=== PATIENT | male | born 1950 | race Caucasian/White ===

== ENCOUNTER 2019-05-23 07:46 | Day surgery (SDC) | payer MEDICARE, SELFPAY ==
--- NOTE | 2019-05-22 16:58 | PM.PREOP ---
Pre-operative Note Interval Note History & Physical reviewed/Exam performed by Physician: Yes Changes to H&P: No
[2019-05-23 08:22] VITALS: PULSE 71; RESP 18; TEMP 36.4; O2SAT 100
[2019-05-23 08:24] VITALS: BMI 22.6
[2019-05-23] MEDS: PROPARACAINE 0.5% OPHTH SOL 2 DROPS EYE-OP (08:40)
[2019-05-23] MEDS: CATARACT EYE COMPOUND (10 DROPS/SYRINGE) 3 DROPS EYE-OP (08:50)
--- NOTE | 2019-05-23 10:04 | SUR.OPER ---
Supine on eye stretcher, head on extension cradle secured with tape. Arms tucked at sides with blanket. Pillow under knees.
[2019-05-23] MEDS: HYALURONATE SODIUM 10 MG/ML SYRINGE INJ (10:16)
[2019-05-23] MEDS: CHONDROIDTIN/SOD HYALURONATE 1.05 ML SYRINGE INTRAOCULA (10:16)
[2019-05-23] MEDS: TRIAMCINOLONE 50 MG/5 ML VIAL INJ (10:17)
[2019-05-23] MEDS: MOXIFLOXACIN INJ 5 MG/ML VIAL EYE-OP (10:17)
[2019-05-23] MEDS: PHENYLEPHRINE/LIDOCAINE VIAL (OR) 0.2 ML EYE-OP (10:18)
[2019-05-23] MEDS: LIDOCAINE 2% 4 ML, BUPIVACAINE 0.5% (PF) 4 ML, HYALURONIDASE 150 UNIT INJ (10:19)
[2019-05-23] MEDS: BALANCED SALT IRRIG SOLN NO.2 500 ML, EPINEPHrine 1 MG IRR (10:20)
[2019-05-23] MEDS: ERYTHROMYCIN OPHTH 1 GM OINT 1 APPLIC EYE-LEFT (10:21)
[2019-05-23] MEDS: TRYPAN BLUE 0.5 ML SYRINGE INJ (10:25)
[2019-05-23 10:45] VITALS: BP 167/94; PULSE 73; RESP 15; TEMP 36.6; O2SAT 100
--- NOTE | 2019-05-23 10:59 | PM.OP.1 ---
Operative Date/Time/Diagnoses Date of procedure: 05/23/19 Time of procedure: 09:45 Procedure & Clinicians Indications: Preoperative diagnoses: 1. 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 2. 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 Postoperative diagnoses: 1. Complex cataract removed by phacoemulsification with placement of posterior chamber intraocular lens. 2. Use of Malyugin ring. Procedure: Phacoemulsification with posterior chamber intraocular lens implant and use of Malyguin ring and capsular dye. Surgeon: Cori Boss MD Complications: None Specimen: None Implant: [id number] Blood loss: None Anesthesia: Retrobulbar with monitored standby Description of procedure: Patient presents with a complaint of decreased vision due to cataract which is affecting activities of daily living. The patient wants surgery to improve vision. The iris is floppy for unknown reason. He had 6 sessions of preoperative dilating drops without significant effects. He also has diffuse cortical cataract with poor visibility of the red reflex and will need capsular dye. To improve surgical safety a Malyugin ring iris pupillary device is needed as well as capsular dye The patient was taken to the operating room and given IV sedation. A retrobulbar block insert consisting of 6 cc of 2% xylocaine without epinephrine mixed half and half with 0.5% Marcaine with 1 cc of hyaluronidase added is placed between the medial and lateral 1/3 of the inferior orbital rim. The eye is manually massaged for 30 sec, prepped using Betadine solution, and draped in the usual sterile fashion. Temporal approach was made, a 1 mm side-port incision was made 90? from the proposed clear corneal incision position. Phenylephrine 1.5% mixed with 1% xylocaine 0.2 cc was placed into the anterior chamber. An air bubble was placed followed by Visudyne capsular dye which was used to coat the anterior capsule. It was then irrigated out with BSS. Viscoat followed by Healon was then placed. A 2.6 mm clear corneal incision was placed at the 9 o'clock position. A 7.0 mm Malyugin ring was inspected, placed into the cremator and opened in the anterior chamber. The iris was sequentially hooked in all 4 quadrants. It was then centered to improve iris size and visibility.A 360 degree capsulorrhexis style capsulotomy was then performed with a cystitome needle on a Healon aided by the enlarged pupil using the capsular dye to improve visibility. Hydrodelineation and hydrodissection were performed. The phacoemulsification unit is introduced, and sculpting used to groove the central lens. It is then removed in chopping mode. Epi nucleus is removed with epinuclear mode and irrigation aspiration was used to remove the peripheral cortex. The posterior capsule is polished. The intraocular lens is selected, inspected, power confirmed, and placed in the posterior chamber. Viscoelastic was placed into the anterior chamber and the Malyugin ring disinserted from each quadrant of the iris. It was then placed back into its cremator and removed in total from the eye.The wound was stromally hydrated and tested for leaks, there was none and it was left sutureless. Moxifloxacin 0.1 cc was placed into the anterior chamber. Kenalog 0.2 cc was placed in the superior subconjunctival space. A drop of antibiotic and was placed and the eye was patched and shielded. The patient was stable and returned to the recovery room in excellent condition. Dictated by: Cori Boss MD Copy to: [facility]
== END 2019-05-23 11:00 | disposition home or self-care (01) ==
PROVIDERS: Visit Provider Ophthalmology
PROC: (CPT 66982; principal; 2019-05-23 09:45)
DX: H25.812 Combined forms of age-related cataract, left eye (principal); H21.81 Floppy iris syndrome; H43.813 Vitreous degeneration, bilateral
CPT/HCPCS: 66982; J0171; J2250; J2704; J3010; J3301; J3470

== ENCOUNTER 2019-05-30 07:45 | Day surgery (SDC) | payer MEDICARE, SELFPAY ==
--- NOTE | 2019-05-29 16:40 | PM.PREOP ---
Pre-operative Note Interval Note History & Physical reviewed/Exam performed by Physician: Yes Changes to H&P: No H&P completed within 30 days and has changed as indicated here:: Poor dilator. He will need Malyguin ring to increase surgical safety.
--- NOTE | 2019-05-30 07:23 | P.OP_ITS ---
Operative Date/Time/Diagnoses Date of procedure: 05/30/19 Time of procedure: 08:45 Procedure & Clinicians Procedure: Preoperative diagnoses: 1.Complex right advanced nuclear sclerotic and cortical cataract and need for capsular dye. 2. 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 Postoperative diagnoses: 1. Complex cataract removed by phacoemulsification with placement of posterior chamber intraocular lens. 2. Use of Malyugin ring due to poorly dilating iris. Procedure: Complex phacoemulsification with use of capsular dye and posterior chamber intraocular lens implant and use of Malyguin ring. Surgeon: Cori Boss MD Complications: None Specimen: None Implant: [id number] Blood loss: None Anesthesia: Retrobulbar with monitored standby Description of procedure: Patient presents with a complaint of decreased vision due to cataract which is affecting activities of daily living. He is having problems with distance vision and he has had left cataract surgery with the distance target and has anisometropia. He was also noted to need both capsular dye and a iris expanding ring with his surgery last week and will need the same again. The patient wants surgery to improve vision. The iris is floppy due to use of prostate like medication or unknown reason. The patient was taken to the operating room and given IV sedation. A retrobulbar block insert consisting of 6 cc of 2% xylocaine without epinephrine mixed half and half with 0.5% Marcaine with 1 cc of hyaluronidase added is placed between the medial and lateral 1/3 of the inferior orbital rim. Lid akinesia is obtain with 1% xylocaine with epinephrine infiltrated along the lid margin. The eye is manually massaged for 30 sec, prepped using Betadine solution, and draped in the usual sterile fashion. Temporal approach was made, a 1 mm side-port incision was made 90? from the proposed clear corneal incision position. Phenylephrine 1.5% mixed with 1% xylocaine 0.2 cc was placed into the anterior chamber. An air bubble was placed followed by Visudyne capsular dye due to poor visibility of the anterior capsule. It was placed under the iris and there was inability to see the peripheral capsule.. Viscoat followed by Healon was then placed. A 2.6 mm clear incision with a 2.6 mm blade was placed. A 7.0 mm Malyugin ring was inspected, placed into the therapeutic recreation director and opened in the anterior chamber. The iris was sequentially hooked in all 4 quadrants. It was then centered to improve iris size and visibility. A 360 degree capsulorrhexis style capsulotomy was then performed with a cystitome needle on a Healon aided by the enlarged pupil. Hydrodelineation and hydrodissection were performed. The phacoemulsification unit is introduced, and sculpting used to groove the central lens. It is then removed in chopping mode. Epi nucleus is removed with epinuclear mode and irrigation aspiration was used to remove the peripheral cortex. The posterior capsule is polished. The intraocular lens is selected, inspected, power confirm ed, and placed in the posterior chamber. Viscoelastic was placed into the anterior chamber and the Malyugin ring disinserted from each quadrant of the iris. It was then placed back into its therapeutic recreation director and removed in total from the eye. The wound was stromally hydrated and tested for leaks, there was none and it was left sutureless. Moxifloxacin 0.1 cc was placed into the anterior chamber. Kenalog 0.2 cc was placed in the superior subconjunctival space. A drop of antibiotic and was placed and the eye was patched and shielded. The patient was stable and returned to the recovery room in excellent condition. Dictated by: Cori Boss MD Copy to: [facility]
[2019-05-30 08:09] VITALS: BP 163/96; PULSE 71; RESP 15; TEMP 36.5; O2SAT 98; BMI 24.6
[2019-05-30] MEDS: PROPARACAINE 0.5% OPHTH SOL 2 DROPS EYE-OP (08:15)
[2019-05-30] MEDS: CATARACT EYE COMPOUND (10 DROPS/SYRINGE) 3 DROPS EYE-OP (08:20)
[2019-05-30] MEDS: CHONDROIDTIN/SOD HYALURONATE 1.05 ML SYRINGE INTRAOCULA (09:05)
[2019-05-30] MEDS: HYALURONATE SODIUM 10 MG/ML SYRINGE INJ (09:06)
[2019-05-30] MEDS: ERYTHROMYCIN OPHTH 1 GM OINT 1 APPLIC EYE-RIGHT (09:06)
[2019-05-30] MEDS: MOXIFLOXACIN INJ 5 MG/ML VIAL EYE-OP (09:07)
[2019-05-30] MEDS: TRIAMCINOLONE 50 MG/5 ML VIAL INJ (09:07)
[2019-05-30] MEDS: TRYPAN BLUE 0.5 ML SYRINGE INJ (09:07)
[2019-05-30] MEDS: PHENYLEPHRINE/LIDOCAINE VIAL (OR) 0.2 ML EYE-OP (09:07)
[2019-05-30] MEDS: BALANCED SALT IRRIG SOLN NO.2 500 ML, EPINEPHrine 1 MG IRR (09:08)
[2019-05-30] MEDS: LIDOCAINE 2% 4 ML, BUPIVACAINE 0.5% (PF) 4 ML, HYALURONIDASE 150 UNIT INJ (09:08)
[2019-05-30 09:38] VITALS: BP 160/95; PULSE 68; RESP 15; TEMP 36.2; O2SAT 100
== END 2019-05-30 09:48 | disposition home or self-care (01) ==
LOC: OR 07:47
PROVIDERS: Visit Provider Ophthalmology
PROC: (CPT 66982; principal; 2019-05-30 08:45)
DX: H25.811 Combined forms of age-related cataract, right eye (principal); H21.81 Floppy iris syndrome
CPT/HCPCS: 66982; J0171; J2704; J3301; J3470